=== PATIENT | female | born 1955 | race Two or more races ===

== ENCOUNTER 2024-09-06 13:19 | Outpatient (CLI) | payer OTHER | END 2024-09-06 13:29 | disposition home or self-care (01) | LOC: MAMO-SONO 13:19 | PROVIDERS: ATTEND Internal Medicine | DX: N64.4 Mastodynia (principal); R92.8 Other abnormal and inconclusive findings on diagnostic imaging of breast; N18.2 Chronic kidney disease, stage 2 (mild); E04.1 Nontoxic single thyroid nodule; M54.17 Radiculopathy, lumbosacral region; J44.9 Chronic obstructive pulmonary disease, unspecified; Z12.31 Encounter for screening mammogram for malignant neoplasm of breast ==

== ENCOUNTER 2024-09-07 13:20 | Outpatient (CLI) | payer OTHER | END 2024-09-07 13:21 | disposition home or self-care (01) | LOC: NUCLEAR 13:20 | PROVIDERS: ATTEND Internal Medicine | DX: M81.0 Age-related osteoporosis without current pathological fracture (principal) ==